=== PATIENT | female | born 1950 | race Caucasian/White ===

== ENCOUNTER → 2017-12-20 | Outpatient (CLI) | payer MEDICARE ==
--- NOTE | 2017-12-20 15:13 | MAM ---
EXAM DESCRIPTION: 3D Diagnostic, Left: Digital Mammography CLINICAL HISTORY: 67 yearsFemaleABNORMAL MAMMO . Right mastectomy for breast cancer. Six-month follow-up of left breast.. COMPARISON: Not Available. No prior reports available. TECHNIQUE: Left breast CC LM MLO projection full-field images, 3-D tomosynthesis digital mammographic technique. Also left breast synthesized CC MLO LM full-field images. CAD not utilized. FINDINGS: The breast parenchymal density pattern is: Heterogeneously dense breast tissue, which may obscure small masses. No skin thickening or nipple retraction scattered fibroglandular tissues in the middle third and anterior third of the left breast. Solitary microcalcifications. Vascular calcifications. Left axillary lymph nodes. Central density in the middle third with radiolucencies consistent with a lymph node. No focal, stellate mass or density, focal asymmetry , and no suspicious microcalcifications left breast. IMPRESSION: BI-RADS CATEGORY: 2 - BENIGN FINDINGS. FOLLOW UP: Routine digital left breast screening, one year interval from December 2017. Written communication explaining the IMPRESSION and follow-up, will be mailed to the patient and referring health care provider. According to the [employer], yearly mammograms are recommended starting at age 40 and continuing as long as a woman is in good health. Any breast change noted on a breast self-exam should be reported promptly to the patient's healthcare provider. Breast MRI is recommended for women with an approximately 20-25% or greater lifetime risk of breast cancer, including women with a strong family history of breast or ovarian cancer and women who have been treated for Hodgkin's disease. A negative mammographic report should not delay tissue diagnosis in patients with significant clinical history or physical findings. Comparison to prior reports and mammographic examinations would be helpful. Extremely dense breast tissue limits the sensitivity of digital mammography. Electronically signed by: Tyson Bettencourt MD 12/20/2017 3:12 PM [facility]
== END ==
LOC: MAMMO 14:09
PROVIDERS: ATTEND Surgery
DX: Z85.3 Personal history of malignant neoplasm of breast (principal); Z90.11 Acquired absence of right breast and nipple
CPT/HCPCS: 77065; G0279

== ENCOUNTER → 2019-04-11 | Outpatient (CLI) | payer MEDICARE, MEDICAID ==
--- NOTE | 2019-04-12 13:42 | MAM ---
EXAM DESCRIPTION: 3D Diagnostic, Left (accession [id number]), Breast,Left (accession [id number]): Ultrasound CLINICAL HISTORY: 69 yearsFemalePERSONAL HX OF BREAST CANCER COMPARISON: Diagnostic left digital breast tomosynthesis 12/20/2017. TECHNIQUE: Left LM CC and MLO projection full-field images, digital mammographic tomosynthesis technique. Left 2-D digital full-field MLO images. CAD not utilized. . Transcutaneous scanning of the left breast utilizing campbell-scale and Doppler modes. Scanning performed by the cupola worker and Dr. Bettencourt. FINDINGS: Left breast parenchymal density pattern is: Scattered areas of fibroglandular density. No skin thickening or nipple retraction left breast vascular calcifications. Left axillary lymph nodes. Solitary microcalcifications. Partially circumscribed mass in the middle third of the left breast at the 5:30 clock position approximately 6 cm from the nipple. Minimal irregularity of the posterior margin. Stable size since the prior study No new focal, stellate mass or density, focal asymmetry , and no suspicious microcalcifications left breast. Ultrasound: Anechoic multicystic structure 3:00 position of the left breast 5 cm from the nipple with appearance like multiple cysts confluent with each other. Not vascular. Wider than tall orientation. Posterior acoustic enhancement. No wall thickening or internal echoes. No overlying skin changes. No dominant solid mass. No parenchymal edema or large calcifications. IMPRESSION: Benign exam. Multiple large cystic structure versus multiple abutting cysts. BIRAD CATEGORY: 2 BENIGN FINDINGS. RECOMMENDATIONS: FOLLOW UP: Routine digital left breast mammographic screening, one year interval from April 2019. Written communication explaining the IMPRESSION and follow-up, will be mailed to the patient and referring health care provider. The FINDINGS and the FOLLOW-UP plan were reviewed in person with the patient after the examination. According to the [employer], yearly mammograms are recommended starting at age 40 and continuing as long as a woman is in good health. Any breast change noted on a breast self-exam should be reported promptly to the patient's healthcare provider. Breast MRI is recommended for women with an approximately 20-25% or greater lifetime risk of breast cancer, including women with a strong family history of breast or ovarian cancer and women who have been treated for Hodgkin's disease. A negative mammographic report should not delay tissue diagnosis in patients with significant clinical history or physical findings. Extremely dense breast tissue limits the sensitivity of digital mammography. Electronically signed by: Tyson Bettencourt MD 04/12/2019 1:39 PM CDT
== END ==
LOC: US 11:00
PROVIDERS: ATTEND Surgery
DX: Z85.3 Personal history of malignant neoplasm of breast (principal)
CPT/HCPCS: 76641; 77065; G0279

== ENCOUNTER → 2020-03-11 | Outpatient (CLI) | payer MEDICARE | LOC: LAB.O 13:41 | PROVIDERS: ATTEND Internal Medicine Interventional Cardiology | DX: I73.9 Peripheral vascular disease, unspecified (principal) ==